=== PATIENT | female | born 2005 | race Two or more races ===

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

== ENCOUNTER 2024-03-10 02:25 | Inpatient (IN) | payer OTHER ==
[2024-03-10] MEDS: ELECTROLYTE-148 SOLN 1,000 ML IV SCH (02:55)
[2024-03-10 03:27] VITALS: BMI 39.1
[2024-03-10 03:33] LABS: BASO % 0.3 % (0-2.0); EOS % 0.3 % (0-4.5); HEMATOCRIT 35.4 % (32.4-45.2); LYMPH % 17.9 % (8-40); MCH 29.9 pg (25.7-33.7); MCHC 33.8 g/dl (32.0-36.0); MEAN CELL VOLUME 88.5 fl (80-96); MEAN PLT VOLUME 10.2 fl (7.5-11.1); MONO % 6.1 % (3.8-10.2); NEUT % 75.4 % (42.8-82.8); PLATELET COUNT 320 10^3/uL (134-434); RDW 14.6 % (11.6-15.6); WHITE BLOOD COUNT 14.6 K/mm3 (4.0-10.0)
[2024-03-10] MEDS ORDERED: ELECTROLYTE-148 SOLN 1,000 ML IV SCH (03:45)
[2024-03-10 03:51] LABS: INR 0.88 (0.83-1.09); PROTHROMBIN TIME (PATIENT) 10.2 SEC (9.7-13.0)
[2024-03-10 03:53] LABS: POTASSIUM 4.1 mmol/L (3.5-5.1)
[2024-03-10 03:54] LABS: CALCIUM 8.5 mg/dL (8.5-10.1)
[2024-03-10 03:55] LABS: BLOOD UREA NITROGEN 10.8 mg/dL (7-18)
[2024-03-10 03:58] LABS: CREATININE 0.5 mg/dL (0.55-1.3)
[2024-03-10] MEDS ORDERED: FENTANYL/BUPIVACAINE/NS/PF - PCEA - 50 ML DISP.SYRIN EP ONE (04:05)
[2024-03-10] MEDS ORDERED: NALOXONE HCL 0.4 MG/ML VIAL IVPUSH PRN (04:39)
[2024-03-10] MEDS: FENTANYL/BUPIVACAINE/NS/PF - PCEA - 50 ML DISP.SYRIN EP SCH (05:00)
[2024-03-10] MEDS ORDERED: OXYTOCIN 20 UNITS in 0.9% NS 20 UNIT/1,000 ML INFUS.BAG IV ONE (07:23)
[2024-03-10] MEDS ORDERED: LIDOCAINE HCL 1% PRESERVATIVE FREE - 30ML VIAL ONE (07:24)
[2024-03-10] MEDS ORDERED: BENZOCAINE 28 GM HEMORRHOIDAL OINTMENT TP PRN (08:05)
[2024-03-10] MEDS ORDERED: BISACODYL 10 MG SUPP.RECT RC PRN (08:05)
[2024-03-10] MEDS ORDERED: BENZOCAINE 20% 57 GM BOTTLE TP PRN (08:05)
[2024-03-10] MEDS ORDERED: WITCH HAZEL 50% (TUCKS) 40 PAD/JAR PAD TP PRN (08:05)
[2024-03-10] MEDS: IBUPROFEN 600 MG TABLET (FP) PO PRN (11:04)
[2024-03-11] MEDS: ACETAMINOPHEN 325 MG TABLET (FP) PO PRN (03:23)
[2024-03-11] MEDS: OXYTOCIN 20 UNITS in 0.9% NS 20 UNIT/1,000 ML INFUS.BAG IV SCH (07:19)
[2024-03-11 09:42] LABS: BASO % 0.5 % (0-2.0); EOS % 0.7 % (0-4.5); HEMATOCRIT 33.1 % (32.4-45.2); HEMOGLOBIN 10.9 GM/dL (10.7-15.3); LYMPH % 28.3 % (8-40); MCH 29.8 pg (25.7-33.7); MEAN CELL VOLUME 90.3 fl (80-96); MEAN PLT VOLUME 10.2 fl (7.5-11.1); MONO % 6.8 % (3.8-10.2); NEUT % 63.7 % (42.8-82.8); PLATELET COUNT 252 10^3/uL (134-434); RBC 3.66 M/mm3 (3.60-5.2); RDW 14.7 % (11.6-15.6); WHITE BLOOD COUNT 12.5 K/mm3 (4.0-10.0)
[2024-03-12 10:12] VITALS: BP 117/88; PULSE 84; RESP 18; TEMP 97.9
== END 2024-03-12 13:00 | disposition home or self-care (01) | DRG 560 ==
LOC: JDEL 02:25 → JLDR 02:40 → J3W 10:10
PROVIDERS: ADMIT Student in an Organized Health Care Education/Training Program; ATTEND Student in an Organized Health Care Education/Training Program
PROC: 10E0XZZ Delivery of Products of Conception, External Approach (ICD-10-PCS; principal; 2024-03-10)
DX: O80 Encounter for full-term uncomplicated delivery (principal); Z3A.39 39 weeks gestation of pregnancy; Z37.0 Single live birth
CPT/HCPCS: 36415; 59025; 59409; 80048; 85025; 85610; 85730; 86780; 86850; 86900; 86901